=== PATIENT | female | born 1985 | race Caucasian/White ===

== ENCOUNTER → 2016-06-17 | Outpatient (REF) | payer OTHER | LOC: M LAB REF 13:06 | PROVIDERS: ATTEND Advanced Practice Midwife | DX: Z36 Encounter for antenatal screening of mother (principal); Z3A.00 Weeks of gestation of pregnancy not specified ==

== ENCOUNTER → 2016-06-22 | Outpatient (CLI) | payer OTHER ==
[2016-06-22 18:04] LABS: MEAN CORPUSCULAR HEMOGLOBIN 30.4 pg (27.0-33.0); MEAN CORPUSCULAR HGB CONC 33.1 g/dl (32.0-36.5); MEAN CORPUSCULAR VOLUME 91.7 fl (80.0-96.0); RED CELL DISTRIBUTION WIDTH 13.8 % (11.5-14.5); WHITE BLOOD COUNT 7.8 K/mm3 (4.0-10.0)
== END ==
LOC: M SMT 14:27
PROVIDERS: ATTEND Obstetrics & Gynecology
DX: Z36 Encounter for antenatal screening of mother (principal); Z3A.00 Weeks of gestation of pregnancy not specified

== ENCOUNTER 2016-07-20 16:59 | Inpatient (IN) | payer OTHER ==
[~2016-07-20] VITALS: Ht 162.6 cm; Wt 75.0 kg
[2016-07-20] VITALS (8 sets, daily range): BP systolic 97–114; BP diastolic 52–66
[2016-07-20] MEDS ORDERED: PRENTAB9 PO (17:17)
[2016-07-20] MEDS ORDERED: LR 1,000 ML IV SCH (19:19)
[2016-07-20] MEDS ORDERED: OXYTOCIN DRIP 30 UNITS in APPROPRIATE DILUENT 1 EA IV SCH (19:30)
[2016-07-20 20:34] LABS: MEAN CORPUSCULAR HEMOGLOBIN 31.5 pg (27.0-33.0); MEAN CORPUSCULAR HGB CONC 34.8 g/dl (32.0-36.5); MEAN CORPUSCULAR VOLUME 90.5 fl (80.0-96.0); RED CELL DISTRIBUTION WIDTH 14.1 % (11.5-14.5); WHITE BLOOD COUNT 8.3 K/mm3 (4.0-10.0)
[2016-07-20] MEDS ORDERED: BUTORPHANOL 2 MG/ML INJ (J0595) IV ONE (21:00)
[2016-07-20] MEDS ORDERED: PROMETHAZINE INJ 25 MG/ML VIAL (J2550) IV ONE (21:00)
[2016-07-21] VITALS (66 sets, daily range): BP systolic 84–133; BP diastolic 50–84
--- NOTE | 2016-07-21 00:20 | HPE ---
DATE OF ADMISSION: 07/20/2016 A 30-year-old 4, para 2 female at 39-6/7 weeks gestation by last menstrual period (LMP) consistent with 7-week ultrasound, estimated date of confinement (EDC) of 07/21/2016, presents with regular contractions every 3-4 minutes for the last 4 hours. She denies vaginal bleeding. There is good movement. Contractions increased in intensity. COURSE: The patient initiated care at 7 weeks gestation on 12/08/2015. First trimester blood pressure 108/64, weight 136 pounds. course was essentially unremarkable. OBSTETRICAL HISTORY: 1. April 2008, 39-week vaginal delivery, 8 pound, 8 ounce male . No complications. 2. In 2009, 12 week miscarriage. 3. July 2013, 40-week vaginal delivery, 8 pound female . No complications. MEDICAL HISTORY: None. SURGICAL HISTORY: Tonsillectomy. Foot surgery. ALLERGIES: None. SOCIAL HISTORY: The patient is . She denies cigarettes, alcohol or drug use. FAMILY HISTORY: Noncontributory. PHYSICAL EXAMINATION: Blood pressure 120/78, pulse 80. She appears uncomfortable. Head and neck exam: Normal. Lungs: Clear. Heart: Regular rate and rhythm. Abdomen: Nontender, gravid. heart tones: Category 1. Extremities: Nontender. Cervix: 3-4 cm, 100% effaced, -2 station, vertex. Contractions every 3-4 minutes. LABS: Blood type A negative, rubella immune, RPR nonreactive. Hepatitis B and C negative. HIV negative. Diabetes screen 107. GBS negative on 06/17/2016. ASSESSMENT: A 30-year-old 4, para 2 female at 39-6/7 weeks gestation, presents in early labor. The patient was admitted on 07/20/2016.
[2016-07-21] MEDS ORDERED: ePHEDrine SULFATE 25 MG/5 ML(5MG/ML) SYRINGE IV PRN (01:21)
[2016-07-21] MEDS ORDERED: LACTATED RINGER'S 1000 ML IV PRN (01:21)
[2016-07-21] MEDS ORDERED: diphenhydrAMINE INJ 50MG/ML VIAL (J1200) IV PRN (01:21)
[2016-07-21] MEDS ORDERED: REFRIGERATOR IV KEYS XX PRN (01:21)
[2016-07-21] MEDS ORDERED: EPIDURAL/PCA KEYS XX PRN (01:21)
[2016-07-21] MEDS ORDERED: FENTANYL/ROPIVACAINE/NACL CADD 250 ML EPIDURAL SCH (01:21)
[2016-07-21] MEDS ORDERED: NALOXONE INJ 0.4 MG/1 ML VIAL (J2310) IV PRN (01:21)
[2016-07-21] MEDS ORDERED: ONDANSETRON 4MG/2ML VIAL (J2405) IV PRN (01:21)
[2016-07-21] MEDS ORDERED: EPIDURAL COMMENT XX SCH (01:21)
[2016-07-21] MEDS ORDERED: FENTANYL 2MCG/ML ROPIVACAINE 0.2% NACL 250 ML CADD As Ordered ONE (01:24)
[2016-07-21] MEDS ORDERED: PRENATAL VITAMIN TAB PO SCH (09:00)
[2016-07-21] MEDS ORDERED: ACETAMINOPHEN 500 MG TAB PO ONE (09:15)
[2016-07-21] MEDS ORDERED: OXYTOCIN DRIP 30 UNITS in APPROPRIATE DILUENT 1 EA IV SCH (12:03)
[2016-07-21] MEDS ORDERED: ANUSOL HC CREAM 30GM TOP PRN (12:15)
[2016-07-21] MEDS ORDERED: METHYLERGONOVINE MALEATE 0.2 MG TAB PO PRN (12:15)
[2016-07-21] MEDS ORDERED: DIBUCAINE 1% OINTMENT 30GM TOP PRN (12:15)
[2016-07-21] MEDS ORDERED: DOCUSATE SODIUM 100 MG CAP PO PRN (12:15)
[2016-07-21] MEDS ORDERED: MEASLES,MUMPS,RUBELLA VACCINE INJ (MMR-II) (90707) SC SCH (12:15)
[2016-07-21] MEDS ORDERED: IBUPROFEN 800 MG TAB PO PRN (12:15)
[2016-07-21] MEDS ORDERED: RHOGAM 300 MCG (1500 IU) INJ (J2790) IM SCH (12:15)
[2016-07-21] MEDS ORDERED: ACETAMINOPHEN 500 MG TAB PO PRN (12:15)
[2016-07-21] MEDS ORDERED: MOM 30ML SUSPENSION UDC PO PRN (12:15)
--- NOTE | 2016-07-21 13:45 | DN ---
DATE: 07/20/2016 TIME OF : 11:06. GENDER: Female. APGARS: 8 and 9. WEIGHT: 4126 grams, 9 pounds 2 ounces. ANESTHESIA: Epidural. LACERATIONS: None. COUNTS: 5 laparotomy sponges accounted for prior to and after delivery. DELIVERY NOTE: On 07/21/2016, at 11:06, Mrs. Reed, a 30-year-old, 4, now para 3, had a spontaneous vaginal delivery of a live born female , Apgars 8 and 9, weight 9 pounds 2 ounces or 4126 grams. Head was delivered occiput anterior (OA) over an intact perineum. There was a nuchal cord which was manually reduced, followed by delivery of the shoulders and corpus. Infant was then handed to mom with a good cry. Cord was clamped times two and was cut by the father of the baby under my direction. Cord blood was then obtained. Placenta was drained and delivered grossly intact. A premixed of 500 mL of normal saline with 30 units of Pitocin was then bolused along with uterine massage until the uterus was firm. On inspection, cervix, vagina and perineum were grossly intact and hemostatic. Mom and baby recovering in stable condition.
[2016-07-22 05:58] VITALS: BP 97/61
[2016-07-22] MEDS ORDERED: ACET50TA PO (10:10)
[2016-07-22] MEDS ORDERED: IBUP-1114 PO (10:10)
== END 2016-07-22 11:40 | disposition home or self-care (01) | DRG 775 ==
LOC: M LDI 16:59 → M OBS 07-21 14:02
PROVIDERS: ADMIT Specialist; ATTEND Specialist
PROC: 10E0XZZ Delivery of Products of Conception, External Approach (ICD-10-PCS; principal; 2016-07-20)
DX: O69.82X0 Labor and delivery complicated by other cord entanglement, without compression, not applicable or unspecified (principal); Z37.0 Single live birth; Z3A.39 39 weeks gestation of pregnancy